=== PATIENT | female | born 1955 | race American Indian/Alaskan Native ===

== ENCOUNTER 2016-11-23 18:41 | Emergency (ER) | payer OTHER ==
[~2016-11-23] VITALS: Ht 160 cm; Wt 89.1 kg
[2016-11-23 19:29] LABS: HEMOGLOBIN 15.7 g/dL (11.7-16.4)
[2016-11-23 19:38] LABS: ASPARTATE AMINO TRANSFERASE 25 U/L (15-37); BLOOD UREA NITROGEN 16 mg/dL (7-18)
[2016-11-23 19:44] LABS: IS PT STATUS REG ER OR PRE ER? YES
[2016-11-23] MEDS ORDERED: METH500T7 PO (19:57)
[2016-11-23] MEDS ORDERED: SUMA100T4 PO (19:57)
[2016-11-23] MEDS ORDERED: HYDR25TA6 PO (19:57)
[2016-11-23] MEDS ORDERED: BUTA1CAP57 PO (19:57)
[2016-11-23] MEDS ORDERED: AMIT10TA PO (19:57)
[2016-11-23 22:39] VITALS: BP 148/74
== END 2016-11-23 22:41 | disposition home or self-care (01) ==
LOC: ED 22:20
DX: R00.2 Palpitations (principal); R53.1 Weakness
CPT/HCPCS: 36415; 70450; 71010; 72125; 80053; 82962; 83036; 84443; 84484; 85025; 93005